=== PATIENT | female | born 1985 | race Caucasian/White ===

== ENCOUNTER 2017-01-11 09:50 | Emergency (ER) | payer OTHER, MEDICAID ==
[2017-01-11 09:52] VITALS: BP 132/77; PULSE 108; RESP 24; TEMP 98.7; O2SAT 100
[2017-01-11] MEDS ORDERED: SODIUM CHLOR 0.9% 1000 ML INJ 1,000 ML IV SCH (10:15)
[2017-01-11] MEDS ORDERED: MORPHINE SULFATE 4 MG/ML INJ IV PUSH ONE (10:15)
[2017-01-11 10:22] VITALS: BP 107/66; PULSE 90; RESP 20; O2SAT 100
[2017-01-11 10:22] LABS: AUTOMATED NEUTROPHIL # 4.8 TH/MM3 (1.8-7.7); BASOPHIL # 0.1 TH/MM3 (0-0.2); EOSINOPHIL % 0.6 % (0.0-4.0); HEMATOCRIT 37.9 % (35.0-46.0); HEMO FLAGS DIFF FINAL; LYMPH % 23.7 % (9.0-44.0); LYMPHOCYTE # 1.6 TH/MM3 (1.0-4.8); MEAN CELL VOLUME 92.7 FL (80.0-100.0); MEAN CORPUSCULAR HGB CONC 33.4 % (32.0-36.0); MONO % 6.2 % (0.0-8.0); NEUT % 68.5 % (16.0-70.0); PLATELET COUNT 151 TH/MM3 (150-450); RED BLOOD COUNT 4.09 MIL/MM3 (4.00-5.30); RED CELL DISTRIBUTION WIDTH 13.4 % (11.6-17.2); WHITE BLOOD COUNT 6.9 TH/MM3 (4.0-11.0)
[2017-01-11 10:42] LABS: BETA HCG QUANT LESS THAN 1 MIU/ML (0-5)
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
[2017-01-11 11:21] VITALS: BP 134/82; PULSE 103; RESP 22; O2SAT 98
[2017-01-11] MEDS ORDERED: IOHEXOL 350 MG/ML 10 ML VIAL (for RAD DIAG) IV ONE (11:48)
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
[2017-01-11 12:21] VITALS: BP 114/60; PULSE 69; RESP 18; O2SAT 98
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
[2017-01-11 13:10] VITALS: BP 114/63; PULSE 72; RESP 18; O2SAT 98
[2017-01-11] MEDS ORDERED: NAPR500 PO (13:21)
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
[2017-01-11] MEDS ORDERED: KETOROLAC TROMETHAMINE 30 MG/ML (IVP) VIAL IV PUSH ONE (13:30)
== END 2017-01-11 13:41 | disposition home or self-care (01) ==
LOC: PHED 09:50
DX: M54.9 Dorsalgia, unspecified (principal); F17.210 Nicotine dependence, cigarettes, uncomplicated; V43.62XA Car passenger injured in collision with other type car in traffic accident, initial encounter; Y93.89 Activity, other specified; Y92.410 Unspecified street and highway as the place of occurrence of the external cause; Y99.8 Other external cause status
CPT/HCPCS: 70450; 71260; 72125; 72128; 72131; 74177; 84702; 85025; 96361; 96374; 96375; 99285; J1885; J2270; J7030; L0150; Q9967

== ENCOUNTER 2017-04-14 13:34 | Emergency (ER) | payer MEDICAID, OTHER ==
[~2017-04-14] VITALS: Ht 157.5 cm; Wt 44.5 kg
[~2017-04-14 13:34] MED LIST: NAPR1SUS3 PO; NAPR500 PO; TYLE325T PO
[2017-04-14 13:41] VITALS: BP 123/72; PULSE 100; RESP 24; TEMP 98.6; O2SAT 99
--- NOTE | 2017-04-14 13:43 | PD ---
Physical Exam Date Seen by Provider: Apr 14, 2017 Time Seen by Provider: 13:39 Narrative 32-year-old white female presents to emergency department with complaints of nausea vomiting. The patient states that she feels that she may have had food poisoning 3-4 days ago. Patient is a 4 para 1 AB 2. She is approximately 10-12 weeks . She admits to fever and chills. Positive nausea, vomiting, diarrhea, lower abdominal pain and cramping. No vaginal bleeding or discharge. Patient rates her pain as 7/10. She states that other people in the family been sick with similar symptoms. Vital signs reviewed. Awaiting bed placement. [facility] Medical Record Reviewed: No Supervised Visit with LORRI: Colby Carranza Apr 14, 2017 13:43
[2017-04-14] MEDS ORDERED: ONDANSETRON ODT 4 MG TAB PO ONE (14:00)
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
[2017-04-14] MEDS ORDERED: ACETAMINOPHEN 325 MG TAB PO ONE (15:30)
== END 2017-04-14 16:26 | disposition home or self-care (01) ==
LOC: NEPD 13:34
DX: O21.9 Vomiting of pregnancy, unspecified (principal); Z3A.00 Weeks of gestation of pregnancy not specified
CPT/HCPCS: 99283

== ENCOUNTER 2017-09-17 12:14 | Emergency (ER) | payer MEDICAID ==
[~2017-09-17] VITALS: Ht 157.5 cm; Wt 46.0 kg
[~2017-09-17 12:14] MED LIST changes: -NAPR1SUS3 PO; -NAPR500 PO
[2017-09-17 12:15] VITALS: BP 127/81; PULSE 95; RESP 18; TEMP 98.3; O2SAT 100
== END 2017-09-17 13:00 | disposition left against medical advice (07) ==
LOC: NED 12:14
DX: K13.79 Other lesions of oral mucosa (principal); Z53.21 Procedure and treatment not carried out due to patient leaving prior to being seen by health care provider
CPT/HCPCS: 99281

== ENCOUNTER 2017-09-20 16:14 | Emergency (ER) | payer MEDICAID ==
--- NOTE | 2017-09-20 16:38 | PD ---
HPI Chief Complaint Possible ROM Date Seen: Sep 20, 2017 Travel History International Travel<30 Days: No Contact w/Intl Traveler<30Days: No History of Present Illness HPI Ms. Goodwin is a at 38/5 weeks gestation presenting to the OB ED with possible ROM. Patient states around 1100 this morning she started having "trickles" of nonbloody fluid. This has continued throughout the day including after urination. The fluid has been clear and thin without blood. She endorses good movement and denies any contractions, vaginal bleeding, vaginal discharge, or dysuria. She has been receiving care in [place] and reports that her has been without complications thus far. She does report having one early ultrasound with "water on the head" that resolved on her next 2 ultrasounds. Otherwise she has no complaints and denies any fevers, chills, SOB, chest pain, NVD, ABD pain, edema, or calf tenderness. Weeks Gestation: 38 Para: 1 : 5 History Past Medical History Narrative Medical Patient reports: Anxiety with Depression, prior to on Lexapro Iron deficiency Per chart review: ADHD Asthma Bipolar Disorder Cervical cancer Obstetric History Obstetric History Ectopic - surgically removed R tube 2 Miscarriages without D&C 1 at one week early Past Surgical History Narrative Surgical Ectopic removal Appendectomy Family History Narrative Family History No reported FMHx Social History Narrative Social History Tobacco use approximately 0.5ppd No alcohol or illicit drug history reported Allergies-Medications (Allergen,Severity, Reaction): Coded Allergies: No Known Allergies (Unverified , 01/11/17) Home Meds Active Scripts Acetaminophen (Tylenol) 325 Mg Tab, 650 MG PO Q6H Y for PAIN SCALE 1 TO 4, #20 TAB 0 Refills Prov:Josephine Yoon 02/25/17 Review of Systems Except as stated in HPI: all other systems reviewed are Neg Physical Exam Narrative GENERAL: Well-nourished, well-developed patient. SKIN: Warm and dry. HEAD: Normocephalic and atraumatic. EYES: No scleral icterus. No injection or drainage. ENT: No nasal drainage noted. Mucous membranes pink. Airway patent. NECK: Supple, trachea midline. No JVD. CARDIOVASCULAR: Regular rate and rhythm without murmurs, gallops, or rubs. RESPIRATORY: Breath sounds equal bilaterally. No accessory muscle use. ABDOMEN/GI: Abdomen soft, non-tender, bowel sounds present, no rebound, no guarding Gravid to 68 weeks size GENITOURINARY: External Genitalia: intact and normal in appearance Cervix:Posterior Dilatation: Closed Effacement: Long, thick Station: -2 Presentation: Vertex Membranes: Intact FHT's: Category: 1 Baseline: 150s Reactive: Positive Variability: Moderate Decels:None EXTREMITIES: No cyanosis or edema. BACK: Nontender without obvious deformity. No CVA tenderness. NEUROLOGICAL: Awake and alert. Motor and sensory grossly within normal limits. Five out of 5 muscle strength in all muscle groups. Normal speech. Data Data Vital Signs Reviewed: Yes MDM Medical Record Reviewed: Yes Plan Ms. Goodwin is a at 38/5 weeks gestation presenting to the OB ED with possible ROM. 1. IUP at 38/5 weeks gestation -Continue routine OB care -Encourage oral hydration and PNV -FHT category 1, reassuring 2. Possible ROM -Amnisure: Negative -Cervical exam closed 3. GBS Status -Pending per labs 4. Abnormal US -Per chart review, patient following with MFMfor hydrocephalus. -Most recent US shows normal ventricles 5. Eating Disorder -Per prenatals, patient has gained minimal weight throughout -Prenatals mention eating disorder with "binge eating"; possible bulimia vs anorexia 6. Iron deficiency -Patient on iron replacement per report -Most recent H/H 10.4/30.4 Patient to be discharged home with follow up in the [facility]. Patient provided clinic number to schedule appointment for . DW: Dr. Goode Diagnosis Diagnosis: Primary Impression: 38 weeks gestation of Additional Impression: Clear vaginal discharge Disposition: 01 DISCHARGE HOME Condition: Stable Patient Instructions: General Instructions, Early Labor Signs (ED), Movement (ED), Having Your Baby: The Labor Process (GEN) Miguel Harris MD R2 Sep 20, 2017 16:38
== END 2017-09-20 17:40 | disposition home or self-care (01) ==
LOC: HOBED 16:14
DX: O99.89 Other specified diseases and conditions complicating pregnancy, childbirth and the puerperium (principal); N89.8 Other specified noninflammatory disorders of vagina; O99.343 Other mental disorders complicating pregnancy, third trimester; F50.9 Eating disorder, unspecified; F31.9 Bipolar disorder, unspecified; Z3A.38 38 weeks gestation of pregnancy
CPT/HCPCS: 59025; 84112

== ENCOUNTER 2017-09-23 11:45 | Emergency (ER) | payer MEDICAID ==
--- NOTE | 2017-09-23 12:48 | PD ---
HPI Chief Complaint Contractions Travel History International Travel<30 Days: No Contact w/Intl Traveler<30Days: No History of Present Illness HPI Patient is a 32-year-old at 39/1 presenting today for contractions. She states been having contractions for the past week, lost her mucous plug a couple days ago, has had increased strength of contractions since then. Contractions are reported to be approximately every half hour. States she has normal whitish discharge. Denies large gush of fluid, abnormal colored or malodorous discharge, bloody discharge. Denies dysuria, hematuria, frequency, change in color or smell. Denies nausea, vomiting, fever, chills, chest pain. Para: 1 : 5 Miscarriage: 2 : 1 History Past Medical History Narrative Medical Patient reports: Anxiety with Depression, prior to on Lexapro Iron deficiency Per chart review: ADHD Asthma Bipolar Disorder Cervical cancer Obstetric History Obstetric History Ectopic - surgically removed R tube 2 Miscarriages without D&C 1 at one week early Past Surgical History Narrative Surgical Ectopic removal Appendectomy Family History Family History: Negative Social History Alcohol Use: No Tobacco Use: Yes (1/2 pack per day) Substance Abuse: Yes (Marijuana, percocet in early ) Allergies-Medications (Allergen,Severity, Reaction): Coded Allergies: No Known Allergies (Unverified , 01/11/17) Home Meds Active Scripts Acetaminophen (Tylenol) 325 Mg Tab, 650 MG PO Q6H Y for PAIN SCALE 1 TO 4, #20 TAB 0 Refills Prov:Josephine Yoon 02/25/17 Review of Systems General / Constitutional: No: Fever, Chills Eyes: No: Diploplia, Blurred Vision, Visual changes HENT: No: Headaches, Vertigo, Lightheadedness Cardiovascular: No: Irregular Rhythm, Chest Pain or Discomfort, Palpitations Respiratory: No: Cough, Short of Breath, Wheezing Gastrointestinal: No: Nausea, Vomiting, Diarrhea, Abdominal Pain, Hematemesis, Hematochezia, Constipation Genitourinary: No: Urgency, Frequency, Dysuria, Nocturia, Hematuria Musculoskeletal: No: Limited ROM, Weakness Skin: No Rash, No Itching, No Dryness Neurologic: No: Weakness, Dizziness Psychiatric: Anxiety, No: Suicidal Ideations, Homicidal Ideation Endocrine: No: Polydipsia, Polyuria Hematologic/Lymphatic: No Easy Bruising, No Lymph Node Enlargement Physical Exam Narrative GENERAL: Well-nourished, well-developed patient. SKIN: Warm and dry. HEAD: Normocephalic and atraumatic. EYES: No scleral icterus. No injection or drainage. ENT: No nasal drainage noted. Mucous membranes pink. Airway patent. NECK: Supple, trachea midline. No JVD. CARDIOVASCULAR: Regular rate and rhythm without murmurs, gallops, or rubs. RESPIRATORY: Breath sounds equal bilaterally. No accessory muscle use. ABDOMEN/GI: Abdomen soft, non-tender, bowel sounds present, no rebound, no guarding GENITOURINARY: External Genitalia: intact and normal in appearance Cervix: Posterior Dilatation: 1-2 Effacement: 90 Station: -1 Presentation: Vertex Membranes: Intact Uterine Contractions: Rare FHT's: Category: 1 Baseline: 130 Reactive: Yes Variability: Moderate Decels: None EXTREMITIES: No cyanosis or edema. BACK: Nontender without obvious deformity. No CVA tenderness. NEUROLOGICAL: Awake and alert. Motor and sensory grossly within normal limits. Five out of 5 muscle strength in all muscle groups. Normal speech. Data Data Vital Signs Reviewed: Yes Orders Orders Vital Signs (Adult) .ON ADMISSION (09/23/17 12:43) ^ Labor Status (09/23/17 12:43) Heart (09/23/17 12:43) Urinalysis - C+S If Indicated (09/23/17 12:43) MDM Plan 32-year-old at 39/1 who presents today with contractions. Has been having contractions for the past week. No cervical dilation or fluid loss at this time. -category 1 FHT, reassuring -encourage p.o. hydration -Educated in early labor signs, expressed understanding -patient to return with signs of labor, concerning signs DW Dr. Munoz Diagnosis Diagnosis: Primary Impression: Uterine contractions during Additional Impression: 39 weeks gestation of Disposition: 01 DISCHARGE HOME Condition: Stable Patient Instructions: General Instructions, Early Labor Signs (ED) Altaf Soria MD R1 Sep 23, 2017 12:48
[2017-09-24] MEDS ORDERED: PRENTAB7 ×2 (12:44)
== END 2017-09-23 13:35 | disposition home or self-care (01) ==
LOC: HOBED 11:45
DX: O47.1 False labor at or after 37 completed weeks of gestation (principal); Z3A.39 39 weeks gestation of pregnancy
CPT/HCPCS: 59025

== ENCOUNTER 2017-09-23 16:06 | Emergency (ER) | payer MEDICAID ==
--- NOTE | 2017-09-23 16:43 | PD ---
HPI Chief Complaint Bloody vaginal discharge Travel History International Travel<30 Days: No Contact w/Intl Traveler<30Days: No Known Affected Area: No History of Present Illness HPI Patient is a 32-year-old at 39/1 presenting for bloody vaginal discharge. She had been seen earlier in the OB ED for contractions for the past week, lost her mucous plug a couple days ago, has had increased strength of contractions since then. Contractions were reported to be approximately every half hour. Currently she states that she went back home and after urinating she wiped and noticed pinkish discharge with some stringy red blood in it. urine was described as "clear and normal." denies large gush of fluid, malodorous discharge. Denies dysuria, hematuria, frequency, change in color or smell. Denies nausea, vomiting, fever, chills, chest pain. Weeks Gestation: 39 Para: 1 : 5 Miscarriage: 2 : 1 History Past Medical History Narrative Medical Patient reports: Anxiety with Depression, prior to on Lexapro Iron deficiency Per chart review: ADHD Asthma Bipolar Disorder Cervical cancer Obstetric History Obstetric History Ectopic - surgically removed R tube 2 Miscarriages without D&C 1 at one week early Past Surgical History Narrative Surgical Ectopic removal Appendectomy Family History Family History: Negative Social History Alcohol Use: No Tobacco Use: Yes (1/2 pack a day) Substance Abuse: Yes (marijuana and percocet early in ) Allergies-Medications (Allergen,Severity, Reaction): Coded Allergies: No Known Allergies (Unverified , 01/11/17) Home Meds Active Scripts Acetaminophen (Tylenol) 325 Mg Tab, 650 MG PO Q6H Y for PAIN SCALE 1 TO 4, #20 TAB 0 Refills Prov:Josephine Yoon 02/25/17 Review of Systems General / Constitutional: No: Fever, Chills Eyes: No: Diploplia, Blurred Vision, Visual changes, Pain, Photophobia HENT: No: Headaches, Vertigo, Lightheadedness Cardiovascular: No: Chest Pain or Discomfort, Palpitations Respiratory: No: Cough, Short of Breath Gastrointestinal: No: Nausea, Vomiting, Diarrhea, Abdominal Pain, Hematemesis, Hematochezia, Constipation, Changes in Bowel Habits, Indigestion Genitourinary: Vaginal Bleeding, No: Urgency, Frequency, Dysuria, Nocturia, Hematuria Musculoskeletal: No: Limited ROM, Weakness Skin: No Rash, No Itching, No Change in Pigmentation Neurologic: No: Weakness, Dizziness, Syncope Endocrine: No: Polydipsia, Polyuria Hematologic/Lymphatic: No Easy Bruising, No Lymph Node Enlargement Physical Exam Narrative GENERAL: Well-nourished, well-developed patient. SKIN: Warm and dry. HEAD: Normocephalic and atraumatic. EYES: No scleral icterus. No injection or drainage. ENT: No nasal drainage noted. Mucous membranes pink. Airway patent. NECK: Supple, trachea midline. No JVD. CARDIOVASCULAR: Regular rate and rhythm without murmurs, gallops, or rubs. RESPIRATORY: Breath sounds equal bilaterally. No accessory muscle use. ABDOMEN/GI: Abdomen soft, non-tender, bowel sounds present, no rebound, no guarding GENITOURINARY: External Genitalia: intact and normal in appearance Cervix: Posterior Dilatation: 2 Effacement: 100 Station: -1 Presentation: Vertex Membranes: Intact Uterine Contractions: Rare FHT's: Category: 1 Baseline: 150 Reactive: Yes Variability: Moderate Decels: None EXTREMITIES: No cyanosis or edema. BACK: Nontender without obvious deformity. No CVA tenderness. NEUROLOGICAL: Awake and alert. Motor and sensory grossly within normal limits. Five out of 5 muscle strength in all muscle groups. Normal speech. MDM Narrative Course / MDM 32-year-old at 39/1 who presents today with contractions. Has been having contractions for the past week. Minor bloody vaginal discharge today following previous OB ED visit. -Bloody discharge likely secondary to previous vaginal examination -category 1 FHT, reassuring -encourage p.o. hydration -Educated in early labor signs, expressed understanding -patient to return with signs of labor, concerning signs DW Dr. Munoz Diagnosis Diagnosis: Primary Impression: Vaginal bleeding during Additional Impressions: Uterine contractions during 39 weeks gestation of Disposition: 01 DISCHARGE HOME Condition: Stable Patient Instructions: General Instructions, Early Labor Signs (ED), Having Your Baby: The Labor Process (GEN) Altaf Soria MD R1 Sep 23, 2017 16:43
[2017-09-24] MEDS ORDERED: PRENTAB7 ×2 (12:44)
== END 2017-09-23 17:27 | disposition home or self-care (01) ==
LOC: HOBED 16:06
DX: O46.93 Antepartum hemorrhage, unspecified, third trimester (principal); O47.1 False labor at or after 37 completed weeks of gestation; Z3A.39 39 weeks gestation of pregnancy
CPT/HCPCS: 59025

== ENCOUNTER 2017-09-24 06:05 | Emergency (ER) | payer MEDICAID ==
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
[2017-09-24] MEDS ORDERED: ACETAMINOPHEN 325 MG TAB PO ONE (07:30)
[2017-09-24] MEDS ORDERED: PRENTAB7 (12:44)
[2017-09-25] MEDS ORDERED: IBUP1TAB7 PO (09:41)
== END 2017-09-24 08:25 | disposition home or self-care (01) ==
LOC: HOBED 06:05
DX: O26.893 Other specified pregnancy related conditions, third trimester (principal); R10.9 Unspecified abdominal pain; O99.333 Smoking (tobacco) complicating pregnancy, third trimester; F17.210 Nicotine dependence, cigarettes, uncomplicated; Z3A.39 39 weeks gestation of pregnancy
CPT/HCPCS: 80307; 99284

== ENCOUNTER 2017-09-24 11:40 | Inpatient (IN) | payer MEDICAID ==
[2017-09-24] VITALS (33 sets, daily range): BP systolic 84–143; BP diastolic 59–93; PULSE 52–117; RESP 18–20; TEMP 97.9–98.2
[~2017-09-24] VITALS: Ht 157.5 cm; Wt 45.8 kg
--- NOTE | 2017-09-24 12:12 | HHI.HP ---
History & Physical H&P HPI Chief Complaint Contractions Date Seen: Sep 24, 2017 Travel History International Travel<30 Days: No Contact w/Intl Traveler<30Days: No History of Present Illness HPI Ms. Goodwin is a at 39/2 weeks gestation presenting to the OB ED with contractions. She endorses good movement and denies any loss of fluid, vaginal bleeding, vaginal discharge, or dysuria. She has been receiving care in [place] and reports that her has been without complications thus far. She has been seen in the OB ED a total of 5 times within the last 5 days. She does report having one early ultrasound with "water on the head" that resolved on her next 2 ultrasounds. Otherwise she has no complaints and denies any fevers, chills, SOB, chest pain, NVD, ABD pain, edema , or calf tenderness. Weeks Gestation: 38 Para: 1 : 5 History (Limited) History Past Medical History Narrative Medical Patient reports: Anxiety with Depression, prior to on Lexapro Iron deficiency Per chart review possible: ADHD Asthma Bipolar Disorder Cervical cancer Eating disorder Obstetric History Obstetric History Ectopic - surgically removed R tube 2 Miscarriages without D&C 1 at one week early Past Surgical History Narrative Surgical Ectopic removal Appendectomy Family History Narrative Family History No reported FMHx Social History Narrative Social History Tobacco use approximately 0.5ppd No alcohol or illicit drug history reported Patient does endorse prescribed Percocet use during first trimester Per chart review she was positive for marijuana Allergies-Medications Allergies-Medications (Allergen,Severity, Reaction): Coded Allergies: No Known Allergies (Unverified Allergy, Unknown, 09/24/17) Home Meds Active Scripts Acetaminophen (Tylenol) 325 Mg Tab, 650 MG PO Q6H Y for PAIN SCALE 1 TO 4, #20 TAB 0 Refills Prov:Josephine Yoon 02/25/17 ROS Review of Systems Except as stated in HPI: all other systems reviewed are Neg (Per HPI) Physical Exam Physical Exam Narrative GENERAL: Thin patient lying in bed in distress with each contraction. SKIN: Warm and dry. HEAD: Normocephalic and atraumatic. EYES: No scleral icterus. No injection or drainage. ENT: No nasal drainage noted. Mucous membranes pink. Airway patent. NECK: Supple, trachea midline. No JVD. CARDIOVASCULAR: Regular rate and rhythm without murmurs, gallops, or rubs. RESPIRATORY: Breath sounds equal bilaterally. No accessory muscle use. ABDOMEN/GI: Abdomen soft, non-tender, bowel sounds present, no rebound, no guarding Gravid to 68 weeks size GENITOURINARY: External Genitalia: intact and normal in appearance Cervix: Posterior Dilatation: 2-3cm Effacement: thin Station: 1 Presentation: Vertex Membranes: Intact Contractions: Q8m FHT's: Category: 1 Baseline: 140s Reactive: Positive Variability: Moderate Decels:None EXTREMITIES: No cyanosis or edema. BACK: Nontender without obvious deformity. No CVA tenderness. NEUROLOGICAL: Awake and alert. Motor and sensory grossly within normal limits. Five out of 5 muscle strength in all muscle groups. Normal speech. Data Data Data Vital Signs Reviewed: Yes Group B Strep: Negative MDM MDM Medical Record Reviewed: Yes Plan Ms. Goodwin is a at 39/2 weeks gestation presenting to the OB ED with contractions. 1. IUP at 39/2 weeks gestation -Continue routine OB care -Encourage oral hydration and PNV -FHT category 1, reassuring -Plan to admit for labor, orders placed 2. GBS Status -Rapid GBS ordered 3. Abnormal US -Per chart review, patient following with MFMfor hydrocephalus. -Most recent US shows normal ventricles 4. Eating Disorder -Per prenatals, patient has gained minimal weight throughout -Prenatals mention eating disorder with "binge eating"; possible bulimia vs anorexia 5. Iron deficiency -Patient on iron replacement per report -Most recent H/H 10.4/30.4 6. Possible Drug Use per Chart Review -UDS negative 09/24/17 DW: Dr. Andrews, Miguel Abdi MD R2 Sep 24, 2017 11:46 Miguel Harris MD R2 Sep 24, 2017 12:12
[2017-09-24] MEDS ORDERED: LACTATED RINGER'S 1000 ML INJ 1,000 ML IV SCH (12:15)
[2017-09-24] MEDS ORDERED: OXYTOCIN 30 UNITS-500ML PREMIX 500 ML IV ONE (12:15)
[2017-09-24] MEDS ORDERED: CITRIC ACID-SODIUM CITRATE LIQ 30 ML UDC PO SCH (12:15)
[2017-09-24] MEDS ORDERED: SODIUM CHLORID 0.9% 500 ML INJ 500 ML IV PRN (12:15)
[2017-09-24] MEDS ORDERED: LACTATED RINGER'S 1000 ML INJ 1,000 ML IV PRN (12:15)
[2017-09-24] MEDS ORDERED: LIDOCAINE HCL 1% 50 ML VIAL INFIL PRN (12:15)
[2017-09-24] MEDS ORDERED: MINERAL OIL 10 ML VIAL TOPICAL PRN (12:15)
[2017-09-24] MEDS ORDERED: LIDOCAINE HCL 1% 50 ML VIAL I-DERMAL PRN (12:15)
[2017-09-24] MEDS ORDERED: ePHEDrine/NS 25 MG/5 ML SYRINGE ONE (12:24)
[2017-09-24] MEDS ORDERED: fentaNYL 2MCG-BUPIV 0.125% INJ 100 ML ONE (12:24)
[2017-09-24] MEDS ORDERED: SODIUM CHLOR 0.9% 1000 ML INJ 1,000 ML IV PRN (12:35)
[2017-09-24 12:36] LABS: AUTOMATED NEUTROPHIL # 10.7 TH/MM3 (1.8-7.7); BASOPHIL % 0.4 % (0.0-2.0); EOSINOPHIL % 0.1 % (0.0-4.0); HEMATOCRIT 35.6 % (35.0-46.0); HEMOGLOBIN 12.5 GM/DL (11.6-15.3); LYMPH % 17.4 % (9.0-44.0); LYMPHOCYTE # 2.4 TH/MM3 (1.0-4.8); MEAN CELL VOLUME 85.7 FL (80.0-100.0); MEAN CORPUSCULAR HEMOGLOBIN 30.1 PG (27.0-34.0); MEAN CORPUSCULAR HGB CONC 35.1 % (32.0-36.0); MEAN PLATELET VOLUME 10.6 FL (7.0-11.0); MONO % 2.8 % (0.0-8.0); MONOCYTE # 0.4 TH/MM3 (0-0.9); NEUT % 79.3 % (16.0-70.0); PLATELET COUNT 177 TH/MM3 (150-450); RED BLOOD COUNT 4.15 MIL/MM3 (4.00-5.30); RED CELL DISTRIBUTION WIDTH 14.8 % (11.6-17.2); WHITE BLOOD COUNT 13.5 TH/MM3 (4.0-11.0)
[2017-09-24] MEDS ORDERED: PRENTAB7 ×2 (12:44)
[2017-09-24] MEDS ORDERED: NO SYSTEM NARCOTICS PRN (14:15)
[2017-09-24] MEDS ORDERED: DO NOT ADMINISTER ANTICOAGULANTS PRN (14:15)
[2017-09-24] MEDS ORDERED: ePHEDrine/NS 25 MG/5 ML SYRINGE IV PUSH PRN (14:15)
[2017-09-24] MEDS ORDERED: fentaNYL 2MCG-BUPIV 0.125% 100 ML EPIDURAL SCH (14:15)
[2017-09-24] MEDS ORDERED: MEASLES, MUMPS, RUBELLA VACCINE 0.5 ML VIAL SQ ONE (16:00)
[2017-09-24] MEDS ORDERED: DIPHTH/TETANUS/ACEL PERTUSSIS (BOOSTER) 0.5 ML VIAL/PFS IM ONE (16:00)
[2017-09-24 16:12] LABS: AMORPHOUS SEDIMENT, URINE RARE; BILIRUBIN, URINE NEG (NEG); BLOOD, URINE NEG (NEG); GLUCOSE,URINE NEG (NEG); KETONE, URINE NEG (NEG); NITRITE,URINE NEG (NEG); SQUAMOUS EPITHELIAL CELL URINE <1 /hpf (0-5); URINE COLOR YELLOW (YELLW/STRAW); URINE LEUKOCYTE ESTERASE NEG (NEG)
--- NOTE | 2017-09-24 17:58 | PD.OB.DELI ---
Weeks gestation: 39 Anesthesia: Epidural Episiotomy: None Vaginal Delivery: Normal Presentation: Occiput anterior Nuchal Cord: x1 Delayed cord clamping (45 sec): Yes Delivery date: Sep 24, 2017 Delivery time: 17:43 One Minute : 7 Five Minute : 9 Weight: 2980 Placenta: Spontaneous delivery, Intact, 3 vessel cord Laceration: No lacerations Estimated blood loss: 100 Altaf Soria MD R1 Sep 24, 2017 17:58
[2017-09-24] MEDS ORDERED: ALUMINUM/MAGNESIUM/SIMETH 30 ML CUP PO PRN (18:00)
[2017-09-24] MEDS ORDERED: DOCUSATE SODIUM 50 MG/SENNA 8.6 MG TAB PO PRN (18:00)
[2017-09-24] MEDS ORDERED: BENZOCAINE 20% TOPICAL SPRAY 60 ML CAN TOPICAL PRN (18:00)
[2017-09-24] MEDS ORDERED: SODIUM CHLORIDE 0.9% FLUSH 10 ML FLUSH IV FLUSH PRN (18:00)
[2017-09-24] MEDS ORDERED: ZOLPIDEM TARTRATE 5 MG TAB PO PRN (18:00)
[2017-09-24] MEDS ORDERED: OXYTOCIN 30 UNITS-500ML PREMIX 500 ML IV SCH (18:00)
[2017-09-24] MEDS ORDERED: ACETAMINOPHEN 325 MG TAB PO PRN (18:00)
[2017-09-24] MEDS ORDERED: ONDANSETRON ODT 4 MG TAB PO PRN (18:00)
[2017-09-24] MEDS ORDERED: SODIUM CHLORIDE 0.9% FLUSH 10 ML FLUSH IV FLUSH SCH (21:00)
[2017-09-24] MEDS: IBUPROFEN 800 MG TAB PO PRN (21:50)
[2017-09-24] MEDS: WITCH HAZEL 50%/GLYCERIN 12.5% 40 PAD JAR TOPICAL PRN (21:50)
[2017-09-25] MEDS: IBUPROFEN 800 MG TAB PO PRN ×3 (06:27→22:24)
--- NOTE | 2017-09-25 07:54 | HHI.OB ---
Subjective Post Day: 1 Remarks Patient doing well on day 1, afebrile, vital signs stable Patient's bleeding is like a moderate period. At this time She has normal toleration of diet and ambulation at this time Objective Vitals/I&O Vital Signs Date Time Temp Pulse Resp B/P (MAP) Pulse Ox O2 Delivery O2 Flow Rate FiO2 09/24/17 20:37 52 118/69 (85) 09/24/17 18:44 117 125/93 (104) 09/24/17 18:00 98.2 18 09/24/17 17:45 72 135/80 (98) 09/24/17 17:30 107 84/67 (73) 09/24/17 17:15 74 112/72 (85) 09/24/17 17:01 89 112/76 (88) 09/24/17 16:45 57 108/61 (77) 09/24/17 16:45 98.2 20 09/24/17 16:31 60 118/77 (91) 09/24/17 16:15 59 109/73 (85) 09/24/17 16:00 68 114/70 (85) 09/24/17 15:45 72 103/69 (80) 09/24/17 15:30 68 103/63 (76) 09/24/17 15:15 68 90/60 (70) 09/24/17 15:00 54 102/60 (74) 09/24/17 14:45 97.9 09/24/17 14:45 64 104/65 (78) 09/24/17 14:30 89 98/66 (77) 09/24/17 14:15 74 103/59 (74) 09/24/17 14:00 77 104/65 (78) 09/24/17 13:45 80 105/62 (76) 09/24/17 13:45 98.1 09/24/17 13:40 86 102/60 (74) 09/24/17 13:35 90 105/65 (78) 09/24/17 13:35 105 09/24/17 13:30 103 106/61 (76) 09/24/17 13:30 79 09/24/17 13:25 99 112/63 (79) 09/24/17 13:25 98 09/24/17 13:20 88 09/24/17 13:20 87 109/69 (82) 09/24/17 13:15 68 09/24/17 13:15 77 123/78 (93) 09/24/17 13:11 58 143/81 (101) 09/24/17 13:10 71 09/24/17 13:07 68 132/77 (95) 09/24/17 13:05 67 09/24/17 13:00 70 09/24/17 12:45 98.1 18 09/24/17 12:42 57 127/65 (85) Objective Remarks GENERAL: Well-nourished, well-developed patient. CARDIOVASCULAR: Regular rate and rhythm without murmurs, gallops, or rubs. RESPIRATORY: Breath sounds equal bilaterally. No accessory muscle use. ABDOMEN/GI: Abdomen soft, non-tender. Fundus: Firm, non-tender at umbilicus. GENITOURINARY: Light to moderate bleeding. EXTREMITIES: No cyanosis or edema, non-tender, without signs of DVT. Medications and IVs Current Medications Medications (Trade) Dose Ordered Sig/Royce Route Start Time Stop Time Status Last Admin (Flu (Quadrivalent) Vaccine Inj) 0.5 ml ONCE ONCE IM 09/25/17 10:00 09/25/17 10:01 Miscellaneous Information No systemic narcotics to be given except... UNSCH PRN .XX 09/24/17 14:15 09/25/17 14:14 Miscellaneous Information DO NOT ADMINISTER ANY ANTICOAGUL... UNSCH PRN .XX 09/24/17 14:15 09/25/17 14:14 Fentanyl/ Bupivacaine HCl 100 ml @ 0 mls/hr TITRATE EPIDURAL 09/24/17 14:15 09/24/17 15:26 (ePHEDrine/NS 25 MG/5 ML SYR) 10 mg UNSCH PRN IV PUSH 09/24/17 14:15 09/25/17 14:14 (NS Flush) 2 ml BID IV FLUSH 09/24/17 21:00 09/24/17 21:51 (NS Flush) 2 ml UNSCH PRN IV FLUSH 09/24/17 18:00 (Tylenol) 650 mg Q4H PRN PO 09/24/17 18:00 (Motrin) 800 mg Q8H PRN PO 09/24/17 18:00 09/25/17 06:27 (Percocet 5-325 Mg) 1 tab Q4H PRN PO 09/24/17 18:00 (Americaine 20% Top Spr) 1 spray Q4H PRN TOPICAL 09/24/17 18:00 09/24/17 21:50 (Tucks Pads) 1 applic QID PRN TOPICAL 09/24/17 18:00 09/24/17 21:50 (Kathya-Colace) 2 tab Q12H PRN PO 09/24/17 18:00 09/24/17 21:50 (Ambien) 5 mg HS PRN PO 09/24/17 18:00 (Mag-Al Plus Susp Liq) 15 ml Q8H PRN PO 09/24/17 18:00 (Zofran Odt) 4 mg Q6H PRN PO 09/24/17 18:00 Assessment/Plan Assessment and Plan day 1, afebrile vital signs stable after normal vaginal delivery yesterday afternoon Patient's bleeding is acceptable pain minimal p.o. Motrin Likely the patient and baby to be discharged tomorrow Yobany Andrews II, MD Sep 25, 2017 07:54
[2017-09-25] MEDS ORDERED: IBUP1TAB7 PO (09:41)
--- NOTE | 2017-09-25 09:41 | HHI.DCPOC ---
Discharge Care Plan Diagnosis: (1) Normal vaginal delivery Report Symptoms to Your Doctor -Temperature above 100.5 degrees -Redness, of incision or excessive or foul smelling drainage -Unusual pain or calf pain -Increased vaginal bleeding -Painful or difficulty urinating -Feelings of extreme sadness or anxiety after 2 weeks Goals to Promote Your Health * To prevent worsening of your condition and complications * To maintain your health at the optimal level Directions to Meet Your Goals Take your medications as prescribed Follow your dietary instruction Follow activity as directed Ensure plenty of rest for recovery Drink fluids for hydration Keep your appointments as scheduled Take your immunizations and boosters as scheduled If your symptoms worsen call your PCP, if no PCP go to Urgent Care Center or Emergency Room Smoking is Dangerous to Your Health. Avoid second hand smoke Call the 24-hour crisis hotline for domestic abuse at Kane Boyd MD Sep 25, 2017 09:41
[2017-09-25] MEDS ORDERED: INFLUENZA VIRUS VACCINE (QUADRIVALENT) 0.5 ML SYR IM ONE (10:00)
[2017-09-25] MEDS: oxyCODONE/ACETAMINOPHEN 5 MG/325 MG TAB PO PRN ×2 (10:45→20:22)
[2017-09-25 20:20] VITALS: BP 117/72; PULSE 56; RESP 16; TEMP 97.8
[2017-09-25] MEDS: WITCH HAZEL 50%/GLYCERIN 12.5% 40 PAD JAR TOPICAL PRN (22:26)
[2017-09-26] MEDS: IBUPROFEN 800 MG TAB PO PRN (06:03)
[2017-09-26] MEDS: oxyCODONE/ACETAMINOPHEN 5 MG/325 MG TAB PO PRN ×2 (06:04→09:39)
[2017-09-26 07:50] VITALS: BP 133/81; PULSE 72; RESP 18; TEMP 98.4
--- NOTE | 2017-09-26 08:09 | HHI.OB ---
Subjective Remarks 32 year old s/p at 39 wks gestation, PPD 2. AFVSS. Patient reports she is feeling well. Bleeding is decreasing and pain is well-controlled. She is breast feeding and bonding well with baby. Ambulating without difficulties. She is tolerating a diet without nausea or vomiting. She has not had a bowel movement. She has passed gas. Denies chest pain, dysuria, shortness of breath, or calf pain. Objective Vitals/I&O Vital Signs Date Time Temp Pulse Resp B/P (MAP) Pulse Ox O2 Delivery O2 Flow Rate FiO2 09/26/17 07:50 98.4 72 18 133/81 (98) 09/25/17 20:20 97.8 56 16 117/72 (87) Objective Remarks GENERAL: Well-nourished, well-developed patient. CARDIOVASCULAR: Regular rate and rhythm without murmurs, gallops, or rubs. RESPIRATORY: Breath sounds equal bilaterally. No accessory muscle use. ABDOMEN/GI: Abdomen soft, non-tender. Fundus: Firm, non-tender at ~2 cm below umbilicus. GENITOURINARY: Light to moderate bleeding. EXTREMITIES: No cyanosis or edema, non-tender, without signs of DVT. Medications and IVs Current Medications Medications (Trade) Dose Ordered Sig/Royce Route Start Time Stop Time Status Last Admin Fentanyl/ Bupivacaine HCl 100 ml @ 0 mls/hr TITRATE EPIDURAL 09/24/17 14:15 09/24/17 15:26 (NS Flush) 2 ml BID IV FLUSH 09/24/17 21:00 09/24/17 21:51 (NS Flush) 2 ml UNSCH PRN IV FLUSH 09/24/17 18:00 (Tylenol) 650 mg Q4H PRN PO 09/24/17 18:00 (Motrin) 800 mg Q8H PRN PO 09/24/17 18:00 09/26/17 06:03 (Percocet 5-325 Mg) 1 tab Q4H PRN PO 09/24/17 18:00 09/26/17 06:04 (Americaine 20% Top Spr) 1 spray Q4H PRN TOPICAL 09/24/17 18:00 09/24/17 21:50 (Tucks Pads) 1 applic QID PRN TOPICAL 3/2/18 18:00 09/25/17 22:26 (Kathya-Colace) 2 tab Q12H PRN PO 09/24/17 18:00 09/24/17 21:50 (Ambien) 5 mg HS PRN PO 09/24/17 18:00 (Mag-Al Plus Susp Liq) 15 ml Q8H PRN PO 09/24/17 18:00 (Zofran Odt) 4 mg Q6H PRN PO 09/24/17 18:00 Assessment/Plan Assessment and Plan day 2, afebrile vital signs stable after normal vaginal delivery Patient's bleeding is acceptable pain minimal p.o. Motrin Regarding contraception, she is undecided Pelvic rest x 6 weeks Patient medically cleared for discharge today Kane Boyd MD Sep 26, 2017 08:09
== END 2017-09-26 10:19 | disposition home or self-care (01) | DRG 775 ==
LOC: HOBED 11:40 → H2EA 12:10 → H1EA 20:28
PROVIDERS: ADMIT Obstetrics & Gynecology Maternal & Fetal Medicine; ATTEND Obstetrics & Gynecology Maternal & Fetal Medicine
PROC: 10E0XZZ Delivery of Products of Conception, External Approach (ICD-10-PCS; principal; 2017-09-24)
PROC: 3E0R3BZ Introduction of Anesthetic Agent into Spinal Canal, Percutaneous Approach (ICD-10-PCS; 2017-09-24)
PROC: 00HU33Z Insertion of Infusion Device into Spinal Canal, Percutaneous Approach (ICD-10-PCS; 2017-09-24)
DX: O99.333 Smoking (tobacco) complicating pregnancy, third trimester (principal); F17.210 Nicotine dependence, cigarettes, uncomplicated; Z86.59 Personal history of other mental and behavioral disorders; F50.9 Eating disorder, unspecified; O99.284 Endocrine, nutritional and metabolic diseases complicating childbirth; E61.1 Iron deficiency; Z3A.39 39 weeks gestation of pregnancy; Z37.0 Single live birth; Z23 Encounter for immunization
CPT/HCPCS: 59025; 80307; 81001; 85025; 86900; 86901; 87081; 87150; 90686; 90715; 99283; J2590; J3010; J7120; Q2038